=== PATIENT | female | born 1955 | race Caucasian/White ===

== ENCOUNTER 2017-02-07 14:24 | Emergency (ER) | payer MEDICARE, OTHER ==
[2017-02-07] MEDS ORDERED: Sodium Chloride 0.9% 10 ML Syringe FLUSH PRN (14:39)
--- NOTE | 2017-02-07 15:27 | EDM.PDOC ---
ED HPI GENERAL MEDICAL PROBLEM - General Chief Complaint: Diabetic Complaint Stated Complaint: SUGARS HIGH, BLURRED VISION Time Seen by Provider: 02/07/17 14:55 Source of Information: Reports: Patient, RN, RN Notes Reviewed History Limitations: Reports: No Limitations - History of Present Illness INITIAL COMMENTS - FREE TEXT/NARRATIVE: Pt presents to ER with c/o elevated blood sugars. She state on her monitor at home she has been 300-400 range, with the last one being greater than 500. She states sx with elevated blood sugar include shaking, blurred vision, and diaphoresis. She denies any infection at this time, no open wounds, no cough, congestion, fever, chills, or use of steroids. 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 She admits to nausea last night with one emesis of water. Onset: Today, Gradual - Related Data Allergies Allergy/AdvReac Type Severity Reaction Status Date / Time morphine Allergy Nausea Verified 01/29/16 03:15 pioglitazone HCl [From Actos] Allergy Nausea and Verified 01/29/16 03:15 Vomiting cats/dogs Allergy Cannot Uncoded 01/29/16 03:15 Remember environmental Allergy Cannot Uncoded 01/29/16 03:15 Remember adam oil Allergy Cannot Uncoded 01/29/16 03:15 Remember Home Meds: Home Meds ClonazePAM [KlonoPIN] 0.5 mg PO BID PRN 04/03/14 [History] Insulin Aspart [Novolog Flexpen] 15 units SQ QAM 04/03/14 [History] Insulin Detemir [Levemir] 70 units SQ BEDTIME 04/03/14 [History] Levothyroxine 125 mcg PO DAILY 04/03/14 [History] Solifenacin Succinate [Vesicare] 10 mg PO DAILY 04/03/14 [History] Cetirizine [ZyrTEC] 10 mg PO DAILY PRN 05/02/15 [History] Mirtazapine 15 mg PO BEDTIME 05/02/15 [History] Omeprazole 20 mg PO BID 05/02/15 [History] atorvaSTATin [Lipitor] 10 tab PO BEDTIME 05/02/15 [History] Acetaminophen 325 mg PO Q6H PRN 01/29/16 [History] Albuterol/Ipratropium [Combivent Respimat] 1 puff IH QID PRN 01/29/16 [History] Clotrimazole/Betamethasone Dip [Lotrisone Cream] 1 applic TP DAILY PRN 01/29/16 [History] Fluocinonide [Lidex 0.05% Crm] 1 applic TOP ASDIRECTED PRN 01/29/16 [History] Hydrocodone/Acetaminophen [[place] 5-325] 1 - 2 tab PO Q6H PRN 01/29/16 [History] Naphazoline HCl/Pheniramine [Eq Eye Allergy Relief Drops] 1 drop EYEBOTH BID PRN 01/29/16 [History] Nystatin 1 applic TP ASDIRECTED PRN 01/29/16 [History] Ondansetron [Zofran] 8 mg PO Q8H PRN 01/29/16 [History] Prochlorperazine Maleate [Compazine] 10 mg PO Q6HR PRN 01/29/16 [History] Sodium Chloride [Saline Nasal [place]] 1 spray NASBOTH BID PRN 01/29/16 [History] diphenhydrAMINE [Benadryl] 25 mg PO Q6H PRN 01/29/16 [History] Insulin Aspart [Novolog Flexpen] 20 units SQ ACLUNCH 02/07/17 [History] Insulin Aspart [Novolog Flexpen] 22 units SQ ASDIRECTED 02/07/17 [History] Past Medical History HEENT History: Reports: Allergic Rhinitis, Cataract, Impaired Vision Cardiovascular History: Reports: High Cholesterol Respiratory History: Reports: COPD, Pneumonia, Recurrent Other Respiratory History: lung CA Gastrointestinal History: Reports: Colon Polyp, GERD Other Gastrointestinal History: intestinal infection Genitourinary History: Reports: Urinary Incontinence, Other (See Below) Other Genitourinary History: hematuria 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 (See Below) Other OB/BYN History: leiomyoma of uterus, leukoplakia of cervix, mucous polyp of cervix, post-menopausal Musculoskeletal History: Reports: Back Pain, Chronic Other Musculoskeletal History: tendonopathy, cervial lymphadenopathy Neurological History: Reports: Neuropathy, Peripheral Other Neuro History: essential tremors Psychiatric History: Reports: Anxiety, Depression Endocrine/Metabolic History: Reports: Diabetes, Type II, Hypothyroidism Hematologic History: Reports: Anemia Oncologic (Cancer) History: Reports: Lung, Other (See Below) Other Oncologic History: lymphnodes Dermatologic History: Reports: Eczema - Infectious Disease History Infectious Disease History: Reports: Measles - Past Surgical History HEENT Surgical History: Reports: Adenoidectomy, Cataract Surgery, Tonsillectomy Respiratory Surgical History: Reports: Lung Biopsies, Other (See Below) GI Surgical History: Reports: Appendectomy Female Surgical History: Reports: Section, D&C, Other (See Below) Musculoskeletal Surgical History: Reports: Shoulder Surgery, Other (See Below) Other Musculoskeletal Surgeries/Procedures:: foot surgery, growth in chest Oncologic Surgical History: Reports: Other (See Below) Dermatological Surgical History: Reports: None Social & Family History - Family History Family Medical History: Noncontributory - Tobacco Use Smoking Status *Q: Current Every Day Smoker Years of Tobacco use: 40 Packs/Tins Daily: 1 Second Hand Smoke Exposure: No - Caffeine Use Caffeine Use: Reports: Soda - Alcohol Use Days Per Week of Alcohol Use: 0 - Recreational Drug Use Recreational Drug Use: No - Living Situation & Occupation Living situation: Reports: ED ROS GENERAL - Review of Systems Review Of Systems: ROS reveals no pertinent complaints other than HPI. ED EXAM GENERAL NO PERIP PULSE - Physical Exam Exam: See Below Exam Limited By: No Limitations General Appearance: Alert, WD/WN, No Apparent Distress Eye Exam: Bilateral Eye: Normal Inspection Ears: Normal External Exam, Hearing Grossly Normal Nose: Normal Inspection Throat/Mouth: Normal Inspection, Normal Voice, No Airway Compromise Head: Atraumatic, Normocephalic Neck: Normal Inspection, Supple, Non-Tender, Full Range of Motion Respiratory/Chest: Decreased Breath Sounds, Wheezing (insp and exp) Cardiovascular: Normal Peripheral Pulses, Regular Rate, Rhythm, No Edema, No Gallop, No JVD, No Murmur, No Rub GI/Abdominal: Normal Bowel Sounds, Soft, Non-Tender, No Organomegaly, No Distention, No Abnormal Bruit, No Mass (Female) Exam: Deferred Rectal (Female) Exam: Deferred Back Exam: Normal Inspection, Full Range of Motion Extremities: Normal Inspection, Normal Range of Motion, Non-Tender, No Pedal Edema, Normal Capillary Refill Neurological: Alert, Oriented, Normal Cognition, Normal Gait, No Motor/Sensory Deficits Psychiatric: Normal Affect, Normal Mood Skin Exam: Warm, Dry, Intact, Normal Color, No Rash Lymphatic: No Adenopathy Course - Vital Signs Last Recorded V/S: Last Vital Signs Temp 98.1 F 02/07/17 16:29 Pulse 105 H 02/07/17 16:29 Resp 20 02/07/17 16:29 BP 119/51 L 02/07/17 16:29 Pulse Ox 88 L 02/07/17 16:29 - Orders/Labs/Meds Orders: Active Orders 24 hr Category Date Time Status POC Glucose [Blood Glucose Check, Bedside] [] ONETIME Care 02/07/17 16:36 Active POC Glucose [Blood Glucose Check, Bedside] [] ONETIME Care 02/07/17 17:17 Active Peripheral IV Care [] . DIRECTED Care 02/07/17 14:40 Active Chest 1V Frontal [CR] Stat Exams 02/07/17 15:14 Taken Sodium Chloride 0.9% [Saline Flush] Med 02/07/17 14:39 Active 10 ml FLUSH ASDIRECTED PRN Peripheral IV Insertion Adult [OM.PC] Stat Oth 02/07/17 14:39 Ordered Medication Orders Sodium Chloride (Saline Flush) 10 ml FLUSH ASDIRECTED PRN PRN Reason: Keep Vein Open Last Admin: 02/07/17 15:03 Dose: 10 ml Labs: Laboratory Tests 02/07/17 02/07/17 02/07/17 Range/Units 14:53 14:53 15:06 WBC 11.7 H (5.0-10.0) 10^3/uL RBC 5.13 (4.2-5.4) 10^6/uL Hgb 16.4 H D (12.0-16.0) g/dL Hct 48.0 H (37.0-47.0) % MCV 93.6 D (80-100) fL MCH 32.0 (27.0-34.0) pg MCHC 34.2 (33.0-35.0) g/dL Plt Count 220 D (150-450) 10^3/uL Neut % (Auto) 62.8 (42.2-75.2) % Lymph % (Auto) 29.4 (20.5-50.1) % [place] % (Auto) 6.6 (2-8) % Eos % (Auto) 0.9 L (1.0-3.0) % Baso % (Auto) 0.3 (0.0-1.0) % Sodium 132 L (135-145) mmol/L Potassium 3.9 (3.6-5.0) mmol/L Chloride 91 L (101-111) mmol/L Carbon Dioxide 17.0 L D (21.0-31.0) mmol/L Anion Gap 27.9 BUN 22 H (7-18) mg/dL Creatinine 1.4 H (0.6-1.3) mg/dL Est Cr Clr Drug Dosing 34.22 mL/min Estimated GFR (MDRD) 38 BUN/Creatinine Ratio 15.71 Glucose 565 H* (74-105) mg/dL POC Glucose (70-105) mg/dl Calcium 10.3 H (8.4-10.2) mg/dl Total Bilirubin 1.0 (0.2-1.0) mg/dL AST 44 H (10-42) IU/L ALT 43 (10-60) IU/L Alkaline Phosphatase 182 H (42-121) IU/L Total Protein 8.0 (6.7-8.2) g/dl Albumin 4.4 (3.2-5.5) g/dl Globulin 3.6 Albumin/Globulin Ratio 1.22 Urine Color Yellow (YELLOW) Urine Appearance Clear (CLEAR) Urine pH 5.5 (5.0-9.0) Ur Specific [place] 1.010 (1.005-1.030) Urine Protein Negative (NEGATIVE) Urine Glucose (UA) 500 H (NEGATIVE) Urine Ketones 80 H (NEGATIVE) Urine Occult Blood Negative (NEGATIVE) Urine Nitrite Negative (NEGATIVE) Urine Bilirubin Negative (NEGATIVE) Urine Urobilinogen 0.2 (0.2-1.0) mg/dL Ur Leukocyte Esterase Negative (NEGATIVE) Urine RBC 0-5 /HPF Urine WBC 0-5 (0-5/HPF) /HPF Ur Epithelial Cells Few /HPF Urine Bacteria Rare (0-FEW/HPF) /HPF Urine Mucus Rare /LPF 02/07/17 02/07/17 02/07/17 Range/Units 15:32 16:41 17:25 WBC (5.0-10.0) 10^3/uL RBC (4.2-5.4) 10^6/uL Hgb (12.0-16.0) g/dL Hct (37.0-47.0) % MCV (80-100) fL MCH (27.0-34.0) pg MCHC (33.0-35.0) g/dL Plt Count (150-450) 10^3/uL Neut % (Auto) (42.2-75.2) % Lymph % (Auto) (20.5-50.1) % [place] % (Auto) (2-8) % Eos % (Auto) (1.0-3.0) % Baso % (Auto) (0.0-1.0) % Sodium (135-145) mmol/L Potassium (3.6-5.0) mmol/L Chloride (101-111) mmol/L Carbon Dioxide (21.0-31.0) mmol/L Anion Gap BUN (7-18) mg/dL Creatinine (0.6-1.3) mg/dL Est Cr Clr Drug Dosing mL/min Estimated GFR (MDRD) BUN/Creatinine Ratio Glucose (74-105) mg/dL POC Glucose > 500 H* 334 H 282 H (70-105) mg/dl Calcium (8.4-10.2) mg/dl Total Bilirubin (0.2-1.0) mg/dL AST (10-42) IU/L ALT (10-60) IU/L Alkaline Phosphatase (42-121) IU/L Total Protein (6.7-8.2) g/dl Albumin (3.2-5.5) g/dl Globulin Albumin/Globulin Ratio Urine Color (YELLOW) Urine Appearance (CLEAR) Urine pH (5.0-9.0) Ur Specific [place] (1.005-1.030) Urine Protein (NEGATIVE) Urine Glucose (UA) (NEGATIVE) Urine Ketones (NEGATIVE) Urine Occult Blood (NEGATIVE) Urine Nitrite (NEGATIVE) Urine Bilirubin (NEGATIVE) Urine Urobilinogen (0.2-1.0) mg/dL Ur Leukocyte Esterase (NEGATIVE) Urine RBC /HPF Urine WBC (0-5/HPF) /HPF Ur Epithelial Cells /HPF Urine Bacteria (0-FEW/HPF) /HPF Urine Mucus /LPF Meds: Medications Generic Name Dose Route Start Last Admin Trade Name Freq PRN Reason Stop Dose Admin Sodium Chloride 10 ml 02/07/17 14:39 02/07/17 15:03 Saline Flush FLUSH 10 ml ASDIRECTED PRN Administration Keep Vein Open Discontinued Medications Generic Name Dose Route Start Last Admin Trade Name Freq PRN Reason Stop Dose Admin Sodium Chloride 1,000 mls @ 999 mls/hr 02/07/17 15:49 02/07/17 16:06 Normal Saline IV 02/07/17 16:49 999 mls/hr .BOLUS ONE Administration Insulin Human Regular 10 unit 02/07/17 15:50 02/07/17 16:06 Humulin R IV 02/07/17 15:51 10 units ONETIME ONE Administration Protocol - Radiology Interpretation Free Text/Narrative:: chest x-ray: no evidence for acute abnormality in the chest See rad report - Re-Assessments/Exams Free Text/Narrative Re-Assessment/Exam: 02/07/17 17:33 Discussed lab results and xray report with patient. She states she feels better after the fluids and with her blood sugar trending downward. She states she feels comfortable going home and monitoring her blood sugars. Departure - Departure Time of Disposition: 17:32 Disposition: Home, Self-Care 01 Condition: Fair Clinical Impression: Hyperglycemia - Discharge Information Referrals: Lillian Yost [Primary Care Provider] - Forms: ED Department Discharge Additional Instructions: Make an appointment Wednesday morning to be seen at your primary care facility on Wednesday. Continue to monitor blood sugars. Before eating tonight, and before bed. Return to ER with any further problems. - My Orders Last 24 Hours: My Active Orders 02/07/17 14:39 Sodium Chloride 0.9% [Saline Flush] 10 ml FLUSH ASDIRECTED PRN Peripheral IV Insertion Adult [OM.PC] Stat 02/07/17 14:40 Peripheral IV Care [RC] . DIRECTED 02/07/17 15:14 Chest 1V Frontal [CR] Stat 02/07/17 16:36 POC Glucose [Blood Glucose Check, Bedside] [RC] ONETIME 02/07/17 17:17 POC Glucose [Blood Glucose Check, Bedside] [RC] ONETIME - Assessment/Plan Last 24 Hours: My Active Orders 02/07/17 14:39 Sodium Chloride 0.9% [Saline Flush] 10 ml FLUSH ASDIRECTED PRN Peripheral IV Insertion Adult [OM.PC] Stat 02/07/17 14:40 Peripheral IV Care [RC] . DIRECTED 02/07/17 15:14 Chest 1V Frontal [CR] Stat 02/07/17 16:36 POC Glucose [Blood Glucose Check, Bedside] [RC] ONETIME 02/07/17 17:17 POC Glucose [Blood Glucose Check, Bedside] [RC] ONETIME
[2017-02-07] MEDS ORDERED: Sodium Chloride 0.9% 1,000 ML IV ONE (15:49)
[2017-02-07] MEDS ORDERED: Insulin Regular, Human 100 Units/ML 3 ML Vial IV ONE (15:50)
[2017-02-07 16:31] VITALS: BP 119/51
== END 2017-02-07 17:50 | disposition home or self-care (01) ==
LOC: DL.ED 14:24
DX: E11.65 Type 2 diabetes mellitus with hyperglycemia (principal); E78.00 Pure hypercholesterolemia, unspecified; J44.9 Chronic obstructive pulmonary disease, unspecified; K21.9 Gastro-esophageal reflux disease without esophagitis; F32.9 Major depressive disorder, single episode, unspecified; E03.9 Hypothyroidism, unspecified; F17.210 Nicotine dependence, cigarettes, uncomplicated; Z79.4 Long term (current) use of insulin; Z79.899 Other long term (current) drug therapy; Z88.5 Allergy status to narcotic agent; Z88.8 Allergy status to other drugs, medicaments and biological substances; Z91.048 Other nonmedicinal substance allergy status
CPT/HCPCS: 36415; 71010; 80053; 81001; 82962; 85025; 96361; 96374; 99285; J1815; J7030; J7050; 99284

== ENCOUNTER 2017-03-25 14:53 | Emergency (ER) | payer MEDICARE, OTHER ==
[2017-03-25] MEDS ORDERED: Sodium Chloride 0.9% 10 ML Syringe FLUSH PRN (14:57)
[2017-03-25 15:15] VITALS: BP 95/78
[2017-03-25 15:33] LABS: CHLORIDE,CL 100 mmol/L (101-111); SODIUM,NA 136 mmol/L (135-145)
[2017-03-25] MEDS ORDERED: Ondansetron 4 MG/2 ML SDV IV ONE (15:52)
[2017-03-25] MEDS ORDERED: Sodium Chloride 0.9% 1,000 ML IV SCH (16:00)
--- NOTE | 2017-03-25 16:10 | EDM.PDOC ---
ED HPI GENERAL MEDICAL PROBLEM - General Chief Complaint: Diabetic Complaint Stated Complaint: BS NOT NORMAL, [id number] Time Seen by Provider: 03/25/17 15:40 Source of Information: Reports: Patient History Limitations: Reports: No Limitations - History of Present Illness INITIAL COMMENTS - FREE TEXT/NARRATIVE: This 62 yo female patient reports to the ED due to elevated blood sugars today. The patient reports she took 30 units of novolog this morning due to a blood sugar over 500 and another 30 units of novolog at 1300 today due to a blood sugar of over 400. The patient reports she has been getting treatments for cancer (last treatment was at 1430 today). The patient reports she has been noticing increased frequency of urination over the past 2 days. Onset: Sudden Duration: Day(s):, Constant Location: Reports: Other Quality: Reports: Other Severity: Moderate Improves with: Reports: None Worsens with: Reports: None Context: Reports: Other Associated Symptoms: Reports: Nausea/Vomiting - Related Data Allergies Allergy/AdvReac Type Severity Reaction Status Date / Time morphine Allergy Nausea Verified 01/29/16 03:15 pioglitazone HCl [From Actos] Allergy Nausea and Verified 01/29/16 03:15 Vomiting cats/dogs Allergy Cannot Uncoded 01/29/16 03:15 Remember environmental Allergy Cannot Uncoded 01/29/16 03:15 Remember adam oil Allergy Cannot Uncoded 01/29/16 03:15 Remember Home Meds: Home Meds ClonazePAM [KlonoPIN] 0.5 mg PO BID PRN 04/03/14 [History] Insulin Aspart [Novolog Flexpen] 15 units SQ QAM 04/03/14 [History] Insulin Detemir [Levemir] 70 units SQ BEDTIME 04/03/14 [History] Levothyroxine 125 mcg PO DAILY 04/03/14 [History] Solifenacin Succinate [Vesicare] 10 mg PO DAILY 04/03/14 [History] Cetirizine [ZyrTEC] 10 mg PO DAILY PRN 05/02/15 [History] Mirtazapine 15 mg PO BEDTIME 05/02/15 [History] Omeprazole 20 mg PO BID 05/02/15 [History] atorvaSTATin [Lipitor] 10 tab PO BEDTIME 05/02/15 [History] Acetaminophen 325 mg PO Q6H PRN 01/29/16 [History] Albuterol/Ipratropium [Combivent Respimat] 1 puff IH QID PRN 01/29/16 [History] Clotrimazole/Betamethasone Dip [Lotrisone Cream] 1 applic TP DAILY PRN 01/29/16 [History] Fluocinonide [Lidex 0.05% Crm] 1 applic TOP ASDIRECTED PRN 01/29/16 [History] Hydrocodone/Acetaminophen [[place] 5-325] 1 - 2 tab PO Q6H PRN 01/29/16 [History] Naphazoline HCl/Pheniramine [Eq Eye Allergy Relief Drops] 1 drop EYEBOTH BID PRN 01/29/16 [History] Nystatin 1 applic TP ASDIRECTED PRN 01/29/16 [History] Ondansetron [Zofran] 8 mg PO Q8H PRN 01/29/16 [History] Prochlorperazine Maleate [Compazine] 10 mg PO Q6HR PRN 01/29/16 [History] Sodium Chloride [Saline Nasal [place]] 1 spray NASBOTH BID PRN 01/29/16 [History] diphenhydrAMINE [Benadryl] 25 mg PO Q6H PRN 01/29/16 [History] Insulin Aspart [Novolog Flexpen] 20 units SQ ACLUNCH 02/07/17 [History] Insulin Aspart [Novolog Flexpen] 22 units SQ ASDIRECTED 02/07/17 [History] Past Medical History HEENT History: Reports: Allergic Rhinitis, Cataract, Impaired Vision Cardiovascular History: Reports: High Cholesterol Respiratory History: Reports: COPD, Pneumonia, Recurrent Other Respiratory History: lung CA Gastrointestinal History: Reports: Colon Polyp, GERD Other Gastrointestinal History: intestinal infection Genitourinary History: Reports: Urinary Incontinence, Other (See Below) Other Genitourinary History: hematuria STOCK BLENDER History: Reports: Other (See Below) Other OB/BYN History: leiomyoma of uterus, leukoplakia of cervix, mucous polyp of cervix, post-menopausal Musculoskeletal History: Reports: Back Pain, Chronic Other Musculoskeletal History: tendonopathy, cervial lymphadenopathy Neurological History: Reports: Neuropathy, Peripheral Other Neuro History: essential tremors Psychiatric History: Reports: Anxiety, Depression Endocrine/Metabolic History: Reports: Diabetes, Type II, Hypothyroidism Hematologic History: Reports: Anemia Oncologic (Cancer) History: Reports: Lung, Other (See Below) Other Oncologic History: lymphnodes, throat cancer Dermatologic History: Reports: Eczema - Infectious Disease History Infectious Disease History: Reports: Measles - Past Surgical History HEENT Surgical History: Reports: Adenoidectomy, Cataract Surgery, Tonsillectomy Respiratory Surgical History: Reports: Lung Biopsies, Other (See Below) GI Surgical History: Reports: Appendectomy Female Surgical History: Reports: Section, D&C, Other (See Below) Musculoskeletal Surgical History: Reports: Shoulder Surgery, Other (See Below) Other Musculoskeletal Surgeries/Procedures:: foot surgery, growth in chest Oncologic Surgical History: Reports: Other (See Below) Dermatological Surgical History: Reports: None Social & Family History - Family History Family Medical History: Noncontributory - Tobacco Use Smoking Status *Q: Current Every Day Smoker Years of Tobacco use: 20 Packs/Tins Daily: 1 Second Hand Smoke Exposure: No - Caffeine Use Caffeine Use: Reports: Soda, Tea - Alcohol Use Days Per Week of Alcohol Use: 0 - Recreational Drug Use Recreational Drug Use: No - Living Situation & Occupation Living situation: Reports: ED ROS GENERAL - Review of Systems Review Of Systems: ROS reveals no pertinent complaints other than HPI. ED EXAM GENERAL NO PERIP PULSE - Physical Exam Exam: See Below Exam Limited By: No Limitations General Appearance: Alert, WD/WN, Moderate Distress, Obese Eye Exam: Bilateral Eye: EOMI, Normal Inspection, PERRL Ears: Normal External Exam, Normal Canal, Hearing Grossly Normal, Normal TMs Nose: Normal Inspection, Normal Mucosa, No Blood Throat/Mouth: Normal Inspection, Normal Lips, Normal Teeth, Normal Gums, Normal Oropharynx, Normal Voice, No Airway Compromise Head: Atraumatic, Normocephalic Neck: Normal Inspection, Supple, Non-Tender, Full Range of Motion Respiratory/Chest: No Respiratory Distress, Lungs Clear, Normal Breath Sounds, No Accessory Muscle Use, Chest Non-Tender Cardiovascular: Normal Peripheral Pulses, Regular Rate, Rhythm, No Edema, No Gallop, No JVD, No Murmur, No Rub GI/Abdominal: Normal Bowel Sounds, Soft, Non-Tender, No Organomegaly, No Distention, No Abnormal Bruit, No Mass (Female) Exam: Deferred Rectal (Female) Exam: Deferred Back Exam: Normal Inspection, Full Range of Motion, NT Extremities: Normal Inspection, Normal Range of Motion, Non-Tender, Normal Capillary Refill, No Pedal Edema Neurological: Alert, Oriented, CN II-XII Intact, Normal Cognition, Normal Gait, Normal Reflexes, No Motor/Sensory Deficits Psychiatric: Normal Affect, Normal Mood Skin Exam: Warm, Dry, Intact, Normal Color, No Rash Lymphatic: No Adenopathy Course - Vital Signs Last Recorded V/S: Last Vital Signs Temp 36.2 C 03/25/17 15:01 Pulse 116 H 03/25/17 15:01 Resp 22 H 03/25/17 15:01 BP 95/78 03/25/17 15:01 Pulse Ox 95 03/25/17 15:01 - Orders/Labs/Meds Orders: Active Orders 24 hr Category Date Time Status Glucose [Blood Glucose Check, Bedside] [] ONETIME Care 03/25/17 14:56 Active Glucose [Blood Glucose Check, Bedside] [] ONETIME Care 03/25/17 16:45 Ordered Sodium Chloride 0.9% [Normal Saline] 1,000 ml Med 03/25/17 16:00 Active IV ASDIRECTED Sodium Chloride 0.9% [Saline Flush] Med 03/25/17 14:57 Active 10 ml FLUSH ASDIRECTED PRN Saline Lock Insert [OM.PC] Routine Oth 03/25/17 14:57 Ordered Medication Orders Sodium Chloride (Normal Saline) 1,000 mls @ 999 mls/hr IV ASDIRECTED GENNA Last Admin: 03/25/17 15:58 Dose: 999 mls/hr Sodium Chloride (Saline Flush) 10 ml FLUSH ASDIRECTED PRN PRN Reason: Keep Vein Open Last Admin: 03/25/17 15:52 Dose: 10 ml Labs: Laboratory Tests 03/25/17 03/25/17 03/25/17 Range/Units 14:59 15:07 15:07 WBC 12.0 H (5.0-10.0) 10^3/uL RBC 5.01 (4.2-5.4) 10^6/uL Hgb 16.3 H (12.0-16.0) g/dL Hct 48.4 H (37.0-47.0) % MCV 96.6 D (80-100) fL MCH 32.5 (27.0-34.0) pg MCHC 33.7 (33.0-35.0) g/dL Plt Count 220 (150-450) 10^3/uL Neut % (Auto) 53.9 (42.2-75.2) % Lymph % (Auto) 37.3 (20.5-50.1) % [place] % (Auto) 6.7 (2-8) % Eos % (Auto) 1.9 (1.0-3.0) % Baso % (Auto) 0.2 (0.0-1.0) % Add Manual Diff Yes Neutrophils % (Manual) 48 (42-75) % Band Neutrophils % 3 % Lymphocytes % (Manual) 43 (20-50) % Monocytes % (Manual) 5 (2-8) % Eosinophils % (Manual) 1 (1-3) % Sodium 136 (135-145) mmol/L Potassium 3.9 (3.6-5.0) mmol/L Chloride 100 L (101-111) mmol/L Carbon Dioxide 23.0 (21.0-31.0) mmol/L Anion Gap 16.9 BUN 15 (7-18) mg/dL Creatinine 0.9 (0.6-1.3) mg/dL Est Cr Clr Drug Dosing 52.57 mL/min Estimated GFR (MDRD) > 60 BUN/Creatinine Ratio 16.66 Glucose 269 H (74-105) mg/dL POC Glucose 235 H (70-105) mg/dl Calcium 9.6 (8.4-10.2) mg/dl Total Bilirubin 0.5 (0.2-1.0) mg/dL AST 56 H (10-42) IU/L ALT 48 (10-60) IU/L Alkaline Phosphatase 141 H (42-121) IU/L Total Protein 7.9 (6.7-8.2) g/dl Albumin 4.1 (3.2-5.5) g/dl Globulin 3.8 Albumin/Globulin Ratio 1.08 Urine Color (YELLOW) Urine Appearance (CLEAR) Urine pH (5.0-9.0) Ur Specific [place] (1.005-1.030) Urine Protein (NEGATIVE) Urine Glucose (UA) (NEGATIVE) Urine Ketones (NEGATIVE) Urine Occult Blood (NEGATIVE) Urine Nitrite (NEGATIVE) Urine Bilirubin (NEGATIVE) Urine Urobilinogen (0.2-1.0) mg/dL Ur Leukocyte Esterase (NEGATIVE) Urine RBC /HPF Urine WBC (0-5/HPF) /HPF Ur Epithelial Cells /HPF Urine Bacteria (0-FEW/HPF) /HPF Ketones Negative 03/25/17 03/25/17 Range/Units 15:50 16:48 WBC (5.0-10.0) 10^3/uL RBC (4.2-5.4) 10^6/uL Hgb (12.0-16.0) g/dL Hct (37.0-47.0) % MCV (80-100) fL MCH (27.0-34.0) pg MCHC (33.0-35.0) g/dL Plt Count (150-450) 10^3/uL Neut % (Auto) (42.2-75.2) % Lymph % (Auto) (20.5-50.1) % [place] % (Auto) (2-8) % Eos % (Auto) (1.0-3.0) % Baso % (Auto) (0.0-1.0) % Add Manual Diff Neutrophils % (Manual) (42-75) % Band Neutrophils % % Lymphocytes % (Manual) (20-50) % Monocytes % (Manual) (2-8) % Eosinophils % (Manual) (1-3) % Sodium (135-145) mmol/L Potassium (3.6-5.0) mmol/L Chloride (101-111) mmol/L Carbon Dioxide (21.0-31.0) mmol/L Anion Gap BUN (7-18) mg/dL Creatinine (0.6-1.3) mg/dL Est Cr Clr Drug Dosing mL/min Estimated GFR (MDRD) BUN/Creatinine Ratio Glucose (74-105) mg/dL POC Glucose 153 H (70-105) mg/dl Calcium (8.4-10.2) mg/dl Total Bilirubin (0.2-1.0) mg/dL AST (10-42) IU/L ALT (10-60) IU/L Alkaline Phosphatase (42-121) IU/L Total Protein (6.7-8.2) g/dl Albumin (3.2-5.5) g/dl Globulin Albumin/Globulin Ratio Urine Color Yellow (YELLOW) Urine Appearance Slightly cloudy (CLEAR) Urine pH 5.0 (5.0-9.0) Ur Specific [place] 1.015 (1.005-1.030) Urine Protein Negative (NEGATIVE) Urine Glucose (UA) 500 H (NEGATIVE) Urine Ketones 80 H (NEGATIVE) Urine Occult Blood Negative (NEGATIVE) Urine Nitrite Negative (NEGATIVE) Urine Bilirubin Small H (NEGATIVE) Urine Urobilinogen 0.2 (0.2-1.0) mg/dL Ur Leukocyte Esterase Negative (NEGATIVE) Urine RBC 0-5 /HPF Urine WBC 20-30 H (0-5/HPF) /HPF Ur Epithelial Cells Few /HPF Urine Bacteria Rare (0-FEW/HPF) /HPF Ketones Meds: Medications Generic Name Dose Route Start Last Admin Trade Name Freq PRN Reason Stop Dose Admin Sodium Chloride 1,000 mls @ 999 mls/hr 03/25/17 16:00 03/25/17 15:58 Normal Saline IV 999 mls/hr ASDIRECTED GENNA Administration Sodium Chloride 10 ml 03/25/17 14:57 03/25/17 15:52 Saline Flush FLUSH 10 ml ASDIRECTED PRN Administration Keep Vein Open Discontinued Medications Generic Name Dose Route Start Last Admin Trade Name Freq PRN Reason Stop Dose Admin Ondansetron HCl 4 mg 03/25/17 15:52 03/25/17 15:58 Zofran IV 03/25/17 15:53 4 mg ONETIME ONE Administration Departure - Departure Time of Disposition: 17:06 Disposition: Home, Self-Care 01 Condition: Fair Clinical Impression: Hyperglycemia, Dehydration - Discharge Information Instructions: Dehydration, Adult, [id number], Hyperglycemia, [id number] Referrals: Lillian Yost [Primary Care Provider] - Forms: ED Department Discharge Care Plan Goals: The patient was advised of the examination and lab results during the visit. The patient was given a liter of IV fluid and IV Zofran while in the ED. The patient was encouraged to continue to monitor her blood sugar levels. If the patient has any additional symptoms or concerns, the patient should follow-up with her primary care facility or return to the emergency department. - My Orders Last 24 Hours: My Active Orders 03/25/17 14:56 Glucose [Blood Glucose Check, Bedside] [RC] ONETIME 03/25/17 14:57 Sodium Chloride 0.9% [Saline Flush] 10 ml FLUSH ASDIRECTED PRN Saline Lock Insert [OM.PC] Routine 03/25/17 16:00 Sodium Chloride 0.9% [Normal Saline] 1,000 ml IV ASDIRECTED 03/25/17 16:45 Glucose [Blood Glucose Check, Bedside] [RC] ONETIME - Assessment/Plan Last 24 Hours: My Active Orders 03/25/17 14:56 Glucose [Blood Glucose Check, Bedside] [RC] ONETIME 03/25/17 14:57 Sodium Chloride 0.9% [Saline Flush] 10 ml FLUSH ASDIRECTED PRN Saline Lock Insert [OM.PC] Routine 03/25/17 16:00 Sodium Chloride 0.9% [Normal Saline] 1,000 ml IV ASDIRECTED 03/25/17 16:45 Glucose [Blood Glucose Check, Bedside] [RC] ONETIME
== END 2017-03-25 17:15 | disposition home or self-care (01) ==
LOC: DL.ED 14:53
DX: E11.65 Type 2 diabetes mellitus with hyperglycemia (principal); E86.0 Dehydration; C34.90 Malignant neoplasm of unspecified part of unspecified bronchus or lung; C79.89 Secondary malignant neoplasm of other specified sites; C78.39 Secondary malignant neoplasm of other respiratory organs; C77.9 Secondary and unspecified malignant neoplasm of lymph node, unspecified; E78.00 Pure hypercholesterolemia, unspecified; K21.9 Gastro-esophageal reflux disease without esophagitis; E11.42 Type 2 diabetes mellitus with diabetic polyneuropathy; F17.210 Nicotine dependence, cigarettes, uncomplicated; E03.9 Hypothyroidism, unspecified; Z79.4 Long term (current) use of insulin; Z79.899 Other long term (current) drug therapy; Z88.5 Allergy status to narcotic agent; Z91.048 Other nonmedicinal substance allergy status
CPT/HCPCS: 36415; 80053; 81001; 82009; 82962; 85025; 96361; 96374; 99283; J2405; J7030; J7050; 99284